=== PATIENT | female | born 1995 | race Asian ===

== ENCOUNTER 2019-04-23 16:25 | Emergency (ER) | payer SELFPAY ==
[~2019-04-23] VITALS: Ht 157.5 cm; Wt 49.9 kg
[~2019-04-23 16:25] MED LIST: AMMONIA INHALATION 0.33 ML AMP ONE; NALOXONE 2 MG/2 ML (NARCAN) SYR ONE
--- NOTE | 2019-04-23 16:30 | NUR ---
STERNAL RUB DONE BY DR ZEPEDA. PATIENT SAT STRAIGHT UP IN BED.
[2019-04-23] MEDS ORDERED: LACTATED RINGERS 1,000 ML IV ONE (16:32)
--- NOTE | 2019-04-23 16:39 | NUR ---
TO ROOM PATIENT ALERT AND REFUSING CATH ABOUT TO BE PLACED REFUSING ALL TX. SHE REPORTS THAT SHE HAS FITS. DR ZEPEDA TALKED TO HER ABOUT THE RISK OF LEAVING AMA SHE VOICED THAT SHE UNDERSTOOD
[2019-04-23 16:42] LABS: BASOPHILS % (AUTO) 0 % (0-10); EOSINOPHILS # (AUTO) 0.1 10^3/uL (0.0-0.3); EOSINOPHILS % (AUTO) 1 % (0-10); HEMATOCRIT 37 % (35-52); HEMOGLOBIN 12.3 G/DL (11.5-16.0); LYMPHOCYTES # (AUTO) 2.7 X 10^3 (1.0-4.0); LYMPHOCYTES % (AUTO) 29 % (12-44); MEAN CORPUSCULAR HEMOGLOBIN 28 PG (25-34); MEAN CORPUSCULAR HGB CONC 33 G/DL (32-36); MEAN CORPUSCULAR VOLUME 84 FL (80-99); MONOCYTES # (AUTO) 0.8 X 10^3 (0.0-1.0); MONOCYTES % (AUTO) 9 % (0-12); NEUTROPHILS # (AUTO) 5.8 X 10^3 (1.8-7.8); NEUTROPHILS % (AUTO) 62 % (42-75); PLATELET COUNT 180 10^3/uL (130-400); RED CELL DISTRIBUTION WIDTH 13.9 % (10.0-14.5); WHITE BLOOD COUNT 9.4 10^3/uL (4.3-11.0)
[2019-04-23 16:47] VITALS: BP 110/83
--- NOTE | 2019-04-23 16:47 | NUR ---
LEFT [facility] AMB TO DISCHARGE DESK. PATIENT GAVE NAME AND FRIENDS ON ADMIT DID NOT KNOW HER LAST NAME OR HER . Addendum: 04/23/19 at 1720 by PMCCLURE PATIENT REFUSED ALL TREATMENT.
--- NOTE | 2019-04-23 16:47 | NUR ---
SIGNED AMA. VOICED UNDERSTANDING
[2019-04-23 16:48] LABS: INR 1.1 (0.8-1.4); PROTHROMBIN TIME PATIENT 14.7 SEC (12.2-14.7)
[2019-04-23 16:57] LABS: ALANINE AMINOTRANSFERASE 16 U/L (0-55); ALBUMIN 4.3 GM/DL (3.2-4.5); ALKALINE PHOSPHATASE 97 U/L (40-136); AMYLASE 42 U/L (25-125); BILIRUBIN,TOTAL 0.4 MG/DL (0.1-1.0); BUN/CREATININE RATIO 7; CALCIUM 9.3 MG/DL (8.5-10.1); CARBON DIOXIDE 20 MMOL/L (21-32); CHLORIDE 107 MMOL/L (98-107); CREATINE KINASE 38 U/L (29-168); CREATININE SERUM 0.71 MG/DL (0.60-1.30); GFR ESTIMATED > 60; GLUCOSE 84 MG/DL (70-105); LIPASE 27 U/L (8-78); MAGNESIUM 1.8 MG/DL (1.6-2.4); POTASSIUM 3.9 MMOL/L (3.6-5.0); SODIUM 140 MMOL/L (135-145); TOTAL PROTEIN 8.4 GM/DL (6.4-8.2)
[2019-04-23 17:01] LABS: ACETAMINOPHEN < 10 UG/ML (10-30)
[2019-04-23 17:16] LABS: CREATINE KINASE MB 0.2 NG/ML (<6.6); TSH (THYROID ANALYZER) 1.36 UIU/ML (0.35-4.94)
--- NOTE | 2019-04-23 18:21 | ED General ---
General Chief Complaint: Unresponsive Stated Complaint: UNRESPONSIVE Nursing Triage Note: TO ED PER W/C WITH FRIENDS STATES SHE CALLED THEM STATING THAT SHE WAS ON HER PEROID AND NEEDED MEDS FOR THEY REPORTS SHE WENT UNRESPONSIVE TO ED PER W/C UNRESPONSIVE NOT NOT RESPONDING TO STERNAL RUB BY THIS NURSE. FRIENDS WITH HER NO PMH OF PATIENT. Nursing Sepsis Screen: No Definite Risk History of Present Illness Date Seen by Provider: Apr 23, 2019 Time Seen by Provider: 16:24 Initial Comments PT ARRIVES VIA POV --"FRIENDS" BRING HER INTO ER--IN A WHEELCHAIR-BUT THEY DO NOT KNOW PT'S LAST NAME PT IS [employer]--SCHOOL STARTED THIS WEEK PT REPORTEDLY CALLED ONE OF HER FRIENDS AND TOLD HER THAT SHE WAS ON HER PERIOD AND "DIDN'T FEEL GOOD" PT IS "UNRESPONSIVE" ON ARRIVAL--COMPLETELY "LIMP" IN WHEELCHAIR, BUT IS SITTING UP IN WHEELCHAIR AND IS NOT SLIDING OUT OF WHEELCHAIR WILL NOT TALK OR FOLLOW COMMANDS NO PROBLEMS BREATHING AT ALL, NO SNOROUS RESPIRATIONS OR DROOLING. O2 SAT IN UPPER 90'S AND ALL OTHER VITALS ARE NORMAL. ACCUCHECK 86 ON ARRIVAL [employer] FROM [facility] Allergies and Home Medications Allergies Coded Allergies: No Allergy Information Available (Unverified , 04/23/19) Home Medications No Active Prescriptions or Reported Meds Patient Home Medication List Home Medication List Reviewed: Yes Review of Systems Review of Systems Constitutional: other (UNABLE TO OBTAIN ON ARRIVAL) Genitourinary: other (CURRENTLY ON PERIOD ) Psychiatric/Neurological: See HPI Past Tclkopo-Vwxwlk-Hqzvfr Hx Patient Social History Smoking Status: Unknown if Ever Smoked Recent Foreign Travel: No Contact w/Someone Who Travel: No Recent Infectious Disease Expo: No Past Medical History Surgeries: Yes (LAPAROSCOPY FOR OVARIAN CYST) Female Reproductive Disorders: Ovarian Cyst Physical Exam Vital Signs Vital Signs - First Documented 04/23/19 16:25 Temp 100.0 Pulse 77 Resp 18 B/P (MAP) 110/83 (92) Pulse Ox 100 O2 Delivery Room Air Capillary Refill : Less Than 3 Seconds Height, Weight, BMI Height: 5'2.00" Weight: 110lbs. oz. 49.410990pf; BMI Method:Estimated General Appearance: Other ("UNRESPONSIVE" AND COMPLETELY "LIMP" ON ARRIVAL, BUT NO DIFFICULTY BREATHING AND ABLE TO MAINTAIN AIRWAY. EYELIDS "FLUTTERING" AND SQUEEZES EYES SHUT TIGHTLY WHEN TRYING TO EXAMINE EYES WITH LIGHT. NO EXTERNAL EVIDENCE OF TRAUMA ANYWHERE. ) HEENT: PERRL/EOMI Neck: Normal Inspection Respiratory: Normal Breath Sounds, No Accessory Muscle Use, No Respiratory Distress Cardiovascular: Regular Rate, Rhythm, No Edema, No JVD, No Murmur Gastrointestinal: Soft Extremity: Normal Capillary Refill, Normal Inspection, Normal Range of Motion, Non Tender, No Calf Tenderness, No Pedal Edema Neurologic/Psychiatric: Other (MENTATION ABOVE. ) Skin: Normal Color, Warm/Dry Progress/Results/Core Measures Suspected Sepsis Recent Fever Within 48 Hours: No Infection Criteria Present: None New/Unexplained Altered Menta: No Sepsis Screen: No Definite Risk SIRS Temperature:100.0 Pulse: 77 Respiratory Rate: 18 Laboratory Tests 04/23/19 16:30: White Blood Count 9.4 Blood Pressure 110 /83 Mean: 92 Laboratory Tests 04/23/19 16:30: Creatinine 0.71, INR Comment 1.1, Platelet Count 180, Total Bilirubin 0.4 Results/Orders Lab Results Laboratory Tests Test 04/23/19 16:30 04/23/19 16:31 Range/Units White Blood Count 9.4 4.3-11.0 10^3/uL Red Blood Count 4.38 4.35-5.85 10^6/uL Hemoglobin 12.3 11.5-16.0 G/DL Hematocrit 37 35-52 % Mean Corpuscular Volume 84 80-99 FL Mean Corpuscular Hemoglobin 28 25-34 PG Mean Corpuscular Hemoglobin Concent 33 32-36 G/DL Red Cell Distribution Width 13.9 10.0-14.5 % Platelet Count 180 130-400 10^3/uL Mean Platelet Volume 7.4-10.4 FL Neutrophils (%) (Auto) 62 42-75 % Lymphocytes (%) (Auto) 29 12-44 % Monocytes (%) (Auto) 9 0-12 % Eosinophils (%) (Auto) 1 0-10 % Basophils (%) (Auto) 0 0-10 % Neutrophils # (Auto) 5.8 1.8-7.8 X 10^3 Lymphocytes # (Auto) 2.7 1.0-4.0 X 10^3 Monocytes # (Auto) 0.8 0.0-1.0 X 10^3 Eosinophils # (Auto) 0.1 0.0-0.3 10^3/uL Basophils # (Auto) 0.0 0.0-0.1 10^3/uL Prothrombin Time 14.7 12.2-14.7 SEC INR Comment 1.1 0.8-1.4 Activated Partial Thromboplast Time 31 24-35 SEC Sodium Level 140 135-145 MMOL/L Potassium Level 3.9 3.6-5.0 MMOL/L Chloride Level 107 98-107 MMOL/L Carbon Dioxide Level 20 L 21-32 MMOL/L Anion Gap 13 5-14 MMOL/L Blood Urea Nitrogen 5 L 7-18 MG/DL Creatinine 0.71 0.60-1.30 MG/DL Estimat Glomerular Filtration Rate > 60 BUN/Creatinine Ratio 7 Glucose Level 84 70-105 MG/DL Calcium Level 9.3 8.5-10.1 MG/DL Corrected Calcium 9.1 8.5-10.1 MG/DL Magnesium Level 1.8 1.6-2.4 MG/DL Total Bilirubin 0.4 0.1-1.0 MG/DL Aspartate Amino Transf (AST/SGOT) 18 5-34 U/L Alanine Aminotransferase (ALT/SGPT) 16 0-55 U/L Alkaline Phosphatase 97 40-136 U/L Total Creatine Kinase 38 29-168 U/L Creatine Kinase MB 0.2 <6.6 NG/ML Myoglobin 15.7 10.0-92.0 NG/ML Troponin I < 0.028 <0.028 NG/ML Total Protein 8.4 H 6.4-8.2 GM/DL Albumin 4.3 3.2-4.5 GM/DL Amylase Level 42 25-125 U/L Lipase 27 8-78 U/L TSH [place] Testing 1.36 0.35-4.94 UIU/ML Acetaminophen Level < 10 L 10-30 UG/ML Serum Alcohol < 10 <10 MG/DL Monoscreen NEGATIVE NEGATIVE Glucometer 86 70-110 MG/DL My Orders Orders - LEMUEL ZEPEDA DO Accucheck Stat ONCE (04/23/19 16:32) Ed Iv/Invasive Line Start (04/23/19 16:32) Ekg Tracing (04/23/19 16:32) Monitor-Rhythm Ecg Trace Only (04/23/19 16:32) Straight Cath For Spec.-Adult (04/23/19 16:32) Acetaminophen (04/23/19 16:32) Alcohol (04/23/19 16:32) Amylase (04/23/19 16:32) Cbc With Automated Diff (04/23/19 16:32) Comprehensive Metabolic Panel (04/23/19 16:32) Creatine Kinase (04/23/19 16:32) Creatine Kinase Mb (04/23/19 16:32) Drug Screen Stat (Urine) (04/23/19 16:32) Lactic Acid Analyzer (04/23/19 16:32) Lipase (04/23/19 16:32) Magnesium (04/23/19 16:32) Monotest (04/23/19 16:32) Protime With Inr (04/23/19 16:32) Partial Thromboplastin Time (04/23/19 16:32) Rapid Strep A Screen (04/23/19 16:32) Thyroid Analyzer (04/23/19 16:32) Ua Culture If Indicated (04/23/19 16:32) Blood Culture (04/23/19 16:32) Myoglobin Serum (04/23/19 16:32) Troponin I (04/23/19 16:32) Ed Iv/Invasive Line Start (04/23/19 16:32) Ed Iv/Invasive Line Start (04/23/19 16:32) Lactated Ringers (Lr 1000 Ml Iv Solution (04/23/19 16:32) Vital Signs/I&O 04/23/19 04/23/19 16:25 16:47 Temp 100.0 Pulse 77 77 Resp 18 18 B/P (MAP) 110/83 (92) 110/83 (92) Pulse Ox 100 100 O2 Delivery Room Air Room Air Capillary Refill : Less Than 3 Seconds Blood Pressure Mean: 92 Point of Care Testing Finger Stick Blood Glucose: 86 Blood Glucose Action Taken: NOTIFIED Progress Note : Progress Note STERNAL RUB PERFORMED BY ME AND PT HAD A VERY DRAMATIC RESPONSE--IMMEDIATELY BOLTED TO UPRIGHT AND SITTING POSITION. PT IS NOW AWAKE LOOKING AROUND, BUT "WON'T TALK" BUT FOLLOWS COMMANDS AND NODS HEAD YES/NO AND "ACTS" DROWSY--VERY DRAMATIC BEHAVIOR ON MENTIONING CATHETER, PT SUDDENLY AND IMMEDIATELY NOW IS VERY AWAKE, ALERT, ORIENTED X 4, AND IS TALKING COMPLETELY NORMALLY, AND IS ADAMANTLY REFUSING CATHETER, IS REFUSING ALL TESTS, STATES "I AM FINE" " I DON'T NEED ANY TESTS" "I DON'T NEED ANY TREATMENT" STATES ALL SHE WANTS TO DO IS SEE HER FRIENDS AND TALK TO HER FRIENDS. PT IS ADAMANT THAT SHE DOES NOT WANT TO STAY OR HAVE ANY TESTS OR TREATMENTS PT STATES SHE "SOMETIMES HAS FITS" "WHEN SHE GETS ANXIOUS, SHE STARTS SHAKING" A MULTITUDE OF OTHER [employer] STUDENTS ARRIVE DURING PT'S VERY BRIEF ER STAY--OVER A DOZEN OTHER STUDENTS. HOWEVER, THEY DO NOT KNOW HER LAST NAME OR ANY OF HER MEDICAL HISTORY. PT SIGNED OUT AMA, AFTER CONTINUED REFUSAL OF ANY FURTHER TREATMENT PT AMBULATES OUT OF ER ON HER OWN WITHOUT DIFFICULTY. ECG Initial ECG Impression Date: Apr 23, 2019 Initial ECG Impression Time: 16:33 Initial ECG Rate: 79 Initial ECG Rhythm: Normal Sinus Initial ECG Comparisson: No Previous ECG Available Departure Impression Primary Impression: Left against medical advice Additional Impressions: Histrionic behavior SUSPECTED CONVERSION DISORDER TRANSIENT ALTERED MENTAL STATUS Disposition: 07 AGAINST MEDICAL ADVICE Condition: Against Medical Advice Departure-Patient Inst. Referrals: [employer] [facility] (PCP) Primary Care Physician Scripts No Active Prescriptions or Reported Meds LEMUEL ZEPEDA DO Apr 23, 2019 18:21
[2019-04-23] MEDS ORDERED: ACHD5005 PO (22:30)
== END 2019-04-23 16:47 | disposition left against medical advice (07) ==
LOC: EDBD 16:28 → ER 16:28
DX: R41.82 Altered mental status, unspecified (principal); F60.4 Histrionic personality disorder
CPT/HCPCS: 36415; 80053; 80320; 80329; 82150; 82550; 82553; 82962; 83690; 83735; 83874; 84443; 84484; 85025; 85610; 85730; 86308; 93005

== ENCOUNTER 2019-04-23 17:46 | Emergency (ER) | payer SELFPAY ==
[~2019-04-23] VITALS: Ht 157.5 cm; Wt 49.9 kg
[2019-04-23] MEDS ORDERED: IBUPROFEN 800 MG (MOTRIN) TAB PO ONE (18:15)
[2019-04-23] MEDS ORDERED: ACETAMINOPHEN 500 MG TAB (TYLENOL) PO ONE (18:15)
[2019-04-23 18:23] VITALS: BP 110/83
--- NOTE | 2019-04-23 18:23 | ED Abdominal Pain ---
General Chief Complaint: [employer]ESSIONAL [employer] Stated Complaint: WEAKNESS/ABD PAIN Nursing Triage Note: PT STATES STARTING PERIOD YESTERDAY AND IS HAVING COMPARABLE FLOW TO HER NORMAL MENSUS. PT DENIES PASSING CLOTS. PT STATES "I JUST WANT REHYDRATED AND PAIN MEDICINE" PT HAS HISTORY OF OVARIAN CYST. PT STATES SHE JUST MOVED HER 2 WEEKS AGO. PT WAS ADMITTED TO THE ER PRIOR TO THIS VISIT AND PT SIGNED AMA AND DID NOT WANT TO BE SEEN. PT FRIENDS WITH HER TALKED PT IN TO COMING BACK TO THE ER. PT STATES SHE HAS BEEN FEELING VERY ANXIOUS. PT STATES SHE "WANTS TO STOP BLEEDING AND TO BE REHYDRATED AND PAIN KILLERS" PT DENIES TAKING IBUPROFEN OR TYLENOL. Sepsis Screen: No Definite Risk Source of Information: Patient Exam Limitations: No Limitations History of Present Illness Date Seen by Provider: Apr 23, 2019 Time Seen by Provider: 18:21 Initial Comments To ER with c/o midline abdominal pain that began last night. She started her menses at that time. She occasionally has pain like this with her menses, had laparoscopic ovarian cystectomy on the left a few weeks ago. Moved to [facility] [facility] 2 weeks ago for school. Hasnt taken anything for pain today. Vaginal bleeding is consistent with her previous periods. Timing/Duration: 1-2 Days Severity/Quality: Moderate Location: Suprapubic Radiation: No Radiation Activities at Onset: None Allergies and Home Medications Allergies Coded Allergies: No Allergy Information Available (Unverified , 04/23/19) Home Medications No Active Prescriptions or Reported Meds Patient Home Medication List Home Medication List Reviewed: Yes Review of Systems Review of Systems Constitutional: see HPI EENTM: No Symptoms Reported Respiratory: No Symptoms Reported Cardiovascular: No Symptoms Reported Gastrointestinal: See HPI, Abdominal Pain Genitourinary: No Symptoms Reported Musculoskeletal: no symptoms reported Skin: no symptoms reported Psychiatric/Neurological: No Symptoms Reported Endocrine: No Symptoms Reported Hematologic/Lymphatic: No Symptoms Reported Past Kkrznqa-Bbsmqq-Dfyhdw Hx Patient Social History Alcohol Use: Denies Use Recreational Drug Use: No Smoking Status: Never a Smoker Recent Foreign Travel: No Contact w/Someone Who Travel: No Recent Infectious Disease Expo: No Physical Abuse: No Sexual Abuse: No Mistreated: No Fear: No Seasonal Allergies Seasonal Allergies: No Past Medical History Surgeries: Yes (FIBROID/OVARIAN CYST) Respiratory: No Cardiac: No Neurological: No Female Reproductive Disorders: Menstrual Problems, Ovarian Cyst Genitourinary: No Gastrointestinal: No Musculoskeletal: No Endocrine: No HEENT: No Cancer: No Psychosocial: No Physical Exam Vital Signs Vital Signs - First Documented 04/23/19 18:23 Temp 97.6 Pulse 67 Resp 18 B/P (MAP) 110/83 (92) Pulse Ox 100 O2 Delivery Room Air Capillary Refill : Less Than 3 Seconds Height/Weight/BMI Height: 5'2.00" Weight: 110lbs. oz. 49.762689dp; BMI Method:Estimated General Appearance: WD/WN, no apparent distress Respiratory: no respiratory distress, no accessory muscle use Gastrointestinal: normal bowel sounds, non tender, soft Extremities: normal range of motion, non-tender Neurologic/Psychiatric: alert, normal mood/affect, oriented x 3 Skin: normal color, warm/dry Progress/Results/Core Measures Results/Orders Lab Results Laboratory Tests Test 04/23/19 16:30 04/23/19 18:17 Range/Units Serum Test, Qualitative NEGATIVE NEGATIVE Urine Color RED H Urine Clarity BLOODY H Urine pH 8 5-9 Urine Specific [place] 1.015 L 1.016-1.022 Urine Protein 1+ H NEGATIVE Urine Glucose (UA) NEGATIVE NEGATIVE Urine Ketones NEGATIVE NEGATIVE Urine Nitrite NEGATIVE NEGATIVE Urine Bilirubin NEGATIVE NEGATIVE Urine Urobilinogen NORMAL NORMAL MG/DL Urine Leukocyte Esterase 2+ H NEGATIVE Urine RBC (Auto) 5+ H NEGATIVE Urine RBC >100 H /HPF Urine WBC 2-5 /HPF Urine Crystals NONE /LPF Urine Bacteria NONE /HPF Urine Casts NONE /LPF Urine Mucus NEGATIVE /LPF Urine Culture Indicated NO My Orders Orders - KATHIA RAHMAN APRN Ibuprofen Tablet (Motrin Tablet) (04/23/19 18:15) Acetaminophen Tablet (Tylenol Tablet) (04/23/19 18:15) Ua Culture If Indicated (04/23/19 18:08) Hcg,Qualitative Serum (04/23/19 18:08) Medications Given in ED Current Medications Medications Dose Ordered Sig/Ji Route Start Time Stop Time Status Last Admin Dose Admin Acetaminophen 1,000 mg ONCE ONCE PO 04/23/19 18:15 04/23/19 18:16 DC 04/23/19 18:10 1,000 MG Ibuprofen 800 mg ONCE ONCE PO 04/23/19 18:15 04/23/19 18:16 DC 04/23/19 18:10 800 MG Vital Signs/I&O 04/23/19 04/23/19 18:05 18:23 Temp 97.6 Pulse 67 Resp 18 B/P (MAP) 110/83 (92) Pulse Ox 100 O2 Delivery Room Air Departure Communication (Admissions) 184-pt is feeling better at this time. Impression Primary Impression: Normal menstrual period Additional Impression: Abdominal pain Disposition: HOME, SELF-CARE Condition: Stable Departure-Patient Inst. Decision time for Depature: 18:37 Referrals: [employer] [facility] (PCP/Family) Primary Care Physician Patient Instructions: NO INSTRUCTIONS GIVEN Add. Discharge Instructions: 1. Return to ER for any concerns 2. Follow up with your doctor next week or [employer] [facility]. In the meantime use Tylenol and MOTRIN for pain control. Return to Er for lightheadedness, fevers, or severe pain. All discharge instructions reviewed with patient and/or family. Voiced understanding. Scripts No Active Prescriptions or Reported Meds KATHIA RAHMAN APRN Apr 23, 2019 18:23
[2019-04-23 18:25] LABS: BILIRUBIN,URINE NEGATIVE (NEGATIVE); CLARITY,URINE BLOODY; COLOR,URINE RED; GLUCOSE, URINE (UA) NEGATIVE (NEGATIVE); KETONES,URINE NEGATIVE (NEGATIVE); LEUKOCYTE ESTERASE ,URINE 2+ (NEGATIVE); NITRITE,URINE NEGATIVE (NEGATIVE); PH,URINE 8 (5-9); PROTEIN,URINE 1+ (NEGATIVE); UROBILINOGEN,URINE NORMAL (NORMAL)
[2019-04-23 18:31] LABS: RBC,URINE >100 /HPF
--- NOTE | 2019-04-23 18:32 | NUR ---
pt ambulates to bathroom with stand by assist.
[2019-04-23 18:50] VITALS: BP 110/83
[2019-04-23] MEDS ORDERED: ACHD5005 PO (22:30)
== END 2019-04-23 18:51 | disposition home or self-care (01) ==
LOC: EDUNIT# 17:46 → ER 17:47
DX: R10.32 Left lower quadrant pain (principal)
CPT/HCPCS: 36415; 81000; 84703; 99283

== ENCOUNTER 2019-04-23 20:50 | Emergency (ER) | payer SELFPAY ==
[~2019-04-23] VITALS: Ht 157.5 cm; Wt 49.9 kg
--- NOTE | 2019-04-23 21:10 | ED Abdominal Pain ---
General Stated Complaint: CONVULSION Source of Information: Patient Exam Limitations: No Limitations History of Present Illness Date Seen by Provider: Apr 23, 2019 Time Seen by Provider: 21:06 Initial Comments to er per private vehicle with her roomates who've known her for 3 days with c/o suprapubic abodmianl pain. Shes on her menstrual period. Reports pain that is very intense. Had laparoscopic left ovarian cystectomy a few months ago [place]. Moved here for [employer] 2 weeks ago. States this period is heavier than usual. This is her third visit today, first episode she was "unresponsive" and then awakened and stated that she sometimes has "fits" and signed out ama. She then returned, had ua done in addition to labs done previously today. That was unremarkable, she was given tylenol and motrin for pain and sent home. Timing/Duration: 1-2 Days Severity/Quality: Moderate Radiation: No Radiation Activities at Onset: None Associated Symptoms: No Fever/Chills, No Nausea/Vomiting Allergies and Home Medications Allergies Coded Allergies: No Allergy Information Available (Unverified , 04/23/19) Home Medications No Active Prescriptions or Reported Meds Patient Home Medication List Home Medication List Reviewed: Yes Review of Systems Review of Systems Constitutional: see HPI EENTM: No Symptoms Reported Respiratory: No Symptoms Reported Cardiovascular: No Symptoms Reported Gastrointestinal: See HPI, Abdominal Pain Genitourinary: See HPI, Other (vaginal bleeding) Musculoskeletal: no symptoms reported Skin: no symptoms reported Psychiatric/Neurological: No Symptoms Reported Endocrine: No Symptoms Reported Hematologic/Lymphatic: No Symptoms Reported Past Dslsxel-Qipydb-Mqrdcv Hx Patient Social History Recent Foreign Travel: No Contact w/Someone Who Travel: No Seasonal Allergies Seasonal Allergies: No Past Medical History Surgeries: Yes (FIBROID/OVARIAN CYST) Respiratory: No Cardiac: No Neurological: No Female Reproductive Disorders: Menstrual Problems, Ovarian Cyst Genitourinary: No Gastrointestinal: No Musculoskeletal: No Endocrine: No HEENT: No Cancer: No Psychosocial: No Physical Exam Vital Signs Capillary Refill : Height/Weight/BMI Height: 5'2.00" Weight: 110lbs. oz. 49.085075qn; BMI Method:Estimated General Appearance: WD/WN HEENT: PERRL/EOMI, normal ENT inspection Respiratory: no respiratory distress, no accessory muscle use Gastrointestinal: normal bowel sounds, non tender, soft Extremities: normal range of motion, non-tender Neurologic/Psychiatric: alert, normal mood/affect, oriented x 3 Skin: normal color, warm/dry Progress/Results/Core Measures Results/Orders Lab Results Laboratory Tests Test 04/23/19 21:03 Range/Units White Blood Count 9.7 4.3-11.0 10^3/uL Red Blood Count 4.09 L 4.35-5.85 10^6/uL Hemoglobin 11.4 L 11.5-16.0 G/DL Hematocrit 35 35-52 % Mean Corpuscular Volume 84 80-99 FL Mean Corpuscular Hemoglobin 28 25-34 PG Mean Corpuscular Hemoglobin Concent 33 32-36 G/DL Red Cell Distribution Width 14.0 10.0-14.5 % Platelet Count 162 130-400 10^3/uL Mean Platelet Volume 7.4-10.4 FL Neutrophils (%) (Auto) 69 42-75 % Lymphocytes (%) (Auto) 25 12-44 % Monocytes (%) (Auto) 6 0-12 % Eosinophils (%) (Auto) 1 0-10 % Basophils (%) (Auto) 0 0-10 % Neutrophils # (Auto) 6.6 1.8-7.8 X 10^3 Lymphocytes # (Auto) 2.4 1.0-4.0 X 10^3 Monocytes # (Auto) 0.6 0.0-1.0 X 10^3 Eosinophils # (Auto) 0.1 0.0-0.3 10^3/uL Basophils # (Auto) 0.0 0.0-0.1 10^3/uL My Orders Orders - KATHIA RAHMAN APRN Ketorolac Injection (Toradol Injection) (04/23/19 21:15) Ns Iv 1000 Ml (Sodium Chloride 0.9%) (04/23/19 21:15) Lorazepam Injection (Ativan Injection) (04/23/19 21:15) Ct Abd/Pelvis Wo(Kidney Stone) (04/23/19 21:27) Cbc With Automated Diff (04/23/19 21:48) Fentanyl Injection (Sublimaze Injection (04/23/19 22:17) Medications Given in ED Current Medications Medications Dose Ordered Sig/Ji Route Start Time Stop Time Status Last Admin Dose Admin Ketorolac Tromethamine 15 mg ONCE ONCE IVP 04/23/19 21:15 04/23/19 21:16 DC 04/23/19 21:51 15 MG Lorazepam 0.5 mg ONCE ONCE IVP 04/23/19 21:15 04/23/19 21:16 DC 04/23/19 21:52 0.5 MG Departure Communication (Admissions) 2120- pt refused IV contrast. 2227-Pelvic exam with yarelis RN at bedside. dried blood in vaginal vault but no alex hemorrhage from the cervix. Impression Primary Impression: Abdominal pain Additional Impression: Menses painful Disposition: HOME, SELF-CARE Condition: Stable Departure-Patient Inst. Decision time for Depature: 22:29 Referrals: [employer] [facility] (PCP/Family) Primary Care Physician Patient Instructions: Menstrual Cramps (DC) Add. Discharge Instructions: 1. Follow up with [employer] [facility] tomorrow Scripts Hydrocodone Bit/Acetaminophen (Hydrocodone/Acetaminophen 5/325mg Tablet) 1 Tab Tab 1 EACH PO Q4-6HR PRN for PAIN-MODERATE MDD 10 for 3 Days, #5 TAB Prov: KATHIA RAHMAN APRN 04/23/19 KATHIA RAHMAN APRN Apr 23, 2019 21:10
[2019-04-23] MEDS ORDERED: KETOROLAC 30 MG/ML VIAL IVP ONE (21:15)
[2019-04-23] MEDS ORDERED: NS IV 1000 ML 1,000 ML IV SCH (21:15)
[2019-04-23] MEDS ORDERED: LORazepam INJ 2 MG/ML (ATIVAN) VIAL IVP ONE (21:15)
[2019-04-23 21:52] LABS: BASOPHILS % (AUTO) 0 % (0-10); EOSINOPHILS # (AUTO) 0.1 10^3/uL (0.0-0.3); EOSINOPHILS % (AUTO) 1 % (0-10); HEMATOCRIT 35 % (35-52); HEMOGLOBIN 11.4 G/DL (11.5-16.0); LYMPHOCYTES # (AUTO) 2.4 X 10^3 (1.0-4.0); LYMPHOCYTES % (AUTO) 25 % (12-44); MEAN CORPUSCULAR HEMOGLOBIN 28 PG (25-34); MEAN CORPUSCULAR HGB CONC 33 G/DL (32-36); MEAN CORPUSCULAR VOLUME 84 FL (80-99); MONOCYTES # (AUTO) 0.6 X 10^3 (0.0-1.0); MONOCYTES % (AUTO) 6 % (0-12); NEUTROPHILS # (AUTO) 6.6 X 10^3 (1.8-7.8); NEUTROPHILS % (AUTO) 69 % (42-75); PLATELET COUNT 162 10^3/uL (130-400); WHITE BLOOD COUNT 9.7 10^3/uL (4.3-11.0)
--- NOTE | 2019-04-23 21:53 | Diagnostic Imaging Report ---
PROCEDURE: CT urinary tract, rule out kidney stone. TECHNIQUE: Multiple contiguous axial images were obtained through the abdomen and pelvis without the use of intravenous contrast. Auto Exposure Controls were utilized during the CT exam to meet ALARA standards for radiation dose reduction. INDICATION: Left lower quadrant abdominal pain. COMPARISON: None. FINDINGS: The lung bases are clear. The liver, gallbladder, pancreas, spleen, adrenals, kidneys, collecting systems, bladder and appendix are negative on this noncontrast exam. Reproductive structures are grossly unremarkable. No free intraperitoneal air or fluid. No lymphadenopathy. No evidence of bowel obstruction or inflammation. Osseous structures are intact. IMPRESSION: Negative noncontrast CT of the abdomen and pelvis. Dictated by: Dictated on workstation # [id number]
[2019-04-23] MEDS ORDERED: fentaNYL INJECTION 100 MCG/2 ML AMP ONE (22:17)
[2019-04-23] MEDS ORDERED: ACHD5005 PO (22:30)
[2019-04-23] MEDS ORDERED: fentaNYL INJECTION 100 MCG/2 ML AMP IVP ONE (22:45)
[2019-04-23 22:47] VITALS: BP 107/72
== END 2019-04-23 22:48 | disposition home or self-care (01) ==
LOC: EDUNIT# 20:50 → ER 20:52
DX: N94.6 Dysmenorrhea, unspecified (principal)
CPT/HCPCS: 36415; 74176; 85025

== ENCOUNTER 2019-04-24 10:28 | Emergency (ER) | payer SELFPAY ==
[~2019-04-24] VITALS: Ht 157.5 cm; Wt 51.7 kg
[~2019-04-24 10:28] MED LIST changes: +ACHD5005 PO; -AMMONIA INHALATION 0.33 ML AMP ONE; -NALOXONE 2 MG/2 ML (NARCAN) SYR ONE
[2019-04-24] MEDS ORDERED: fentaNYL INJECTION 100 MCG/2 ML AMP ONE (10:45)
--- NOTE | 2019-04-24 10:50 | ED Syncope ---
General Stated Complaint: SYNCOPE Source of Information: Patient Exam Limitations: No Limitations History of Present Illness Date Seen by Provider: Apr 24, 2019 Time Seen by Provider: 10:35 Initial Comments Patient presents to ER by EMS with chief complaint that her cousin Graham was dropping her off at her house and when he went up a car came back she was laying collapsed and unconscious at the bottom of some stairs. EMS arrived and put her in c-collar C-spine precautions. They performed orthostatics which were positive from 140 down to 100 systolic laying to standing. The patient apparently one month ago went to [facility] to have a ectopic in her left tube surgically removed laparoscopically and since then has been bleeding the entire month. She has not followed up with a doctor here with the exception come to the ER for syncopal episode yesterday. She went AMA and did not complete her workup. Patient has continued to soak through about 9 pads daily. She has a primary care doctor in [facility]. No other medical history, surgical history. She does not take any medicines routinely. Allergies and Home Medications Allergies Coded Allergies: No Allergy Information Available (Unverified , 04/23/19) Home Medications Hydrocodone Bit/Acetaminophen 1 Tab Tab, 1 EACH PO Q4-6HR PRN for PAIN-MODERATE Prescribed by: KATHIA RAHMAN on 04/23/19 5389 Patient Home Medication List Home Medication List Reviewed: Yes Review of Systems Constitutional: No chills, No diaphoresis; dizziness; No fever EENTM: No ear pain, No eye pain Respiratory: No cough, No short of breath Cardiovascular: No chest pain, No edema, No Hx of Intervention Gastrointestinal: abdominal pain (LLQ); No constipation, No diarrhea, No nausea, No vomiting Genitourinary: see HPI; No discharge, No dysuria Control/STD Prophylaxis: None Musculoskeletal: No back pain, No joint pain Past Wcnqylf-Hgkyre-Coyust Hx Patient Social History Alcohol Use: Denies Use Recreational Drug Use: No Smoking Status: Never a Smoker Recent Hopitalizations: No Seasonal Allergies Seasonal Allergies: No Past Medical History Surgeries: Yes (LAPAROSCOPY FOR OVARIAN CYST) Respiratory: No Cardiac: No Neurological: No Female Reproductive Disorders: Ovarian Cyst Genitourinary: No Gastrointestinal: No Musculoskeletal: No Endocrine: No HEENT: No Cancer: No Psychosocial: No Integumentary: No Physical Exam Vital Signs Vital Signs - First Documented 04/24/19 10:31 Temp 98.2 Pulse 74 Resp 19 B/P (MAP) 121/76 (91) Pulse Ox 100 O2 Delivery Room Air Capillary Refill : Height, Weight, BMI Height: 5'2.00" Weight: 110lbs. oz. 49.520016ja; BMI Method:Estimated General Appearance: No Apparent Distress, WD/WN HEENT: PERRL/EOMI, TMs Normal, Normal ENT Inspection, Pharynx Normal, Moist Mucous Membranes Neck: Full Range of Motion, Normal Inspection, Non Tender Cardiovascular: Regular Rate, Rhythm, No Edema, Normal Peripheral Pulses Respiratory: Lungs Clear, Normal Breath Sounds, No Accessory Muscle Use, No Respiratory Distress Gastrointestinal: Normal Bowel Sounds, Non Tender, Soft Extremities: Normal Capillary Refill, Normal Inspection, No Pedal Edema Neurologic/Psychiatric: Alert, Oriented x3, No Motor/Sensory Deficits, visual designer II- XII Norm as Tested Cranial Nerves: Normal Hearing, Normal Speech, PERRL Motor/Sensory: No Sensory Deficit, Weak Motor Strength LLE (4/5), Weak Motor Strength LUE (4/5), Weak Motor Strength RLE (4/5), Weak Motor Strength RUE (4/5) Skin: Normal Color, Warm/Dry Progress/Results/Core Measures Results/Orders Lab Results Laboratory Tests Test 04/24/19 10:40 04/24/19 11:00 Range/Units White Blood Count 5.7 4.3-11.0 10^3/uL Red Blood Count 3.84 L 4.35-5.85 10^6/uL Hemoglobin 10.7 L 11.5-16.0 G/DL Hematocrit 33 L 35-52 % Mean Corpuscular Volume 85 80-99 FL Mean Corpuscular Hemoglobin 28 25-34 PG Mean Corpuscular Hemoglobin Concent 33 32-36 G/DL Red Cell Distribution Width 14.0 10.0-14.5 % Platelet Count 156 130-400 10^3/uL Mean Platelet Volume 7.4-10.4 FL Neutrophils (%) (Auto) 53 42-75 % Lymphocytes (%) (Auto) 35 12-44 % Monocytes (%) (Auto) 10 0-12 % Eosinophils (%) (Auto) 1 0-10 % Basophils (%) (Auto) 0 0-10 % Neutrophils # (Auto) 3.1 1.8-7.8 X 10^3 Lymphocytes # (Auto) 2.0 1.0-4.0 X 10^3 Monocytes # (Auto) 0.6 0.0-1.0 X 10^3 Eosinophils # (Auto) 0.1 0.0-0.3 10^3/uL Basophils # (Auto) 0.0 0.0-0.1 10^3/uL Sodium Level 140 135-145 MMOL/L Potassium Level 4.0 3.6-5.0 MMOL/L Chloride Level 112 H 98-107 MMOL/L Carbon Dioxide Level 22 21-32 MMOL/L Anion Gap 6 5-14 MMOL/L Blood Urea Nitrogen 6 L 7-18 MG/DL Creatinine 0.63 0.60-1.30 MG/DL Estimat Glomerular Filtration Rate > 60 BUN/Creatinine Ratio 10 Glucose Level 91 70-105 MG/DL Calcium Level 8.3 L 8.5-10.1 MG/DL Corrected Calcium 8.5 8.5-10.1 MG/DL Total Bilirubin 0.3 0.1-1.0 MG/DL Aspartate Amino Transf (AST/SGOT) 12 5-34 U/L Alanine Aminotransferase (ALT/SGPT) 16 0-55 U/L Alkaline Phosphatase 65 40-136 U/L C-Reactive Protein High Sensitivity 0.61 H 0.00-0.50 MG/DL Total Protein 6.9 6.4-8.2 GM/DL Albumin 3.7 3.2-4.5 GM/DL Urine Color YELLOW Urine Clarity CLEAR Urine pH 6 5-9 Urine Specific [place] 1.015 L 1.016-1.022 Urine Protein NEGATIVE NEGATIVE Urine Glucose (UA) NEGATIVE NEGATIVE Urine Ketones NEGATIVE NEGATIVE Urine Nitrite NEGATIVE NEGATIVE Urine Bilirubin NEGATIVE NEGATIVE Urine Urobilinogen NORMAL NORMAL MG/DL Urine Leukocyte Esterase NEGATIVE NEGATIVE Urine RBC (Auto) 1+ H NEGATIVE Urine RBC RARE /HPF Urine WBC NONE /HPF Urine Squamous Epithelial Cells 0-2 /HPF Urine Crystals NONE /LPF Urine Bacteria NEGATIVE /HPF Urine Casts NONE /LPF Urine Mucus NEGATIVE /LPF Urine Culture Indicated NO Urine Opiates Screen NEGATIVE NEGATIVE Urine Oxycodone Screen NEGATIVE NEGATIVE Urine Methadone Screen NEGATIVE NEGATIVE Urine Propoxyphene Screen NEGATIVE NEGATIVE Urine Barbiturates Screen NEGATIVE NEGATIVE Ur Tricyclic Antidepressants Screen NEGATIVE NEGATIVE Urine Phencyclidine Screen NEGATIVE NEGATIVE Urine Amphetamines Screen NEGATIVE NEGATIVE Urine Methamphetamines Screen NEGATIVE NEGATIVE Urine Benzodiazepines Screen NEGATIVE NEGATIVE Urine Cocaine Screen NEGATIVE NEGATIVE Urine Cannabinoids Screen NEGATIVE NEGATIVE My Orders Orders - MALINI SLADE Cbc With Automated Diff (04/24/19 10:44) Comprehensive Metabolic Panel (04/24/19 10:44) Hs C Reactive Protein (04/24/19 10:44) Ua Culture If Indicated (04/24/19 10:44) Straight Cath For Spec.-Adult (04/24/19 10:44) Ct Head/Cervical Spine Wo (04/24/19 10:44) Fentanyl Injection (Sublimaze Injection (04/24/19 10:45) Fentanyl Injection (Sublimaze Injection (04/24/19 11:15) Drug Screen Stat (Urine) (04/24/19 11:50) Ekg Tracing (04/24/19 11:50) Continuous Ekg Monitoring (04/24/19 11:50) Medications Given in ED Current Medications Medications Dose Ordered Sig/Ji Route Start Time Stop Time Status Last Admin Dose Admin Fentanyl Citrate 50 mcg ONCE ONCE IVP 04/24/19 11:15 04/24/19 11:16 DC 04/24/19 10:54 50 MCG Vital Signs/I&O 04/24/19 04/24/19 10:31 12:46 Temp 98.2 Pulse 74 64 74 73 Resp 19 B/P (MAP) 121/76 (91) 113/73 (86) 108/71 (83) 107/71 (83) Pulse Ox 100 O2 Delivery Room Air Progress Progress Note #1: Time: 11:18 Progress Note The patient is receiving a liter of fluids initiated by EMS which will allow a complete. This would be a 20 cc/kg fluid bolus based on a stated weight of 52 kg. Planned obtain labs and urine by straight catheter. Reviewed notes from previous 3 visits to the ER in the past 2 days. She had a CT of the abdomen and pelvis without IV contrast because of a stated allergy to shellfish and iodine. We'll obtain a urine drug screen and EKG. Troponin and BNP. Her hemoglobin is 10 so she is not significantly anemic and her orthostatics were positive. Progress Note #2: Time: 12:10 Progress Note C-collar removed. Patient has no tenderness in the neck. Reviewed CT of the abdomen pelvis without IV contrast from yesterday demonstrating no free air or free fluid and grossly unremarkable appearance of the reproductive organs. After the orthostatics were repeated they were now normal. Plan will be to have her follow-up outpatient. We can recommend to gynecology for disorganized uterine bleeding. She can follow-up with [facility] or the orthostatic syncope. [place] syncope score negative two points. Very low risk. 0.7% risk of 30-day serious adverse event. Initial ECG Impression Date: Apr 24, 2019 Initial ECG Impression Time: 10:47 Initial ECG Rate: 69 Initial ECG Rhythm: Normal Sinus Initial ECG Intervals: Normal Initial ECG Impression: Normal Initial ECG Comparisson: Unchanged Comment Normal sinus rhythm without any dysrhythmia noted. Low amplitude on some of the leads. Diagnostic Imaging Diagonstic Imaging: CT Plain Films/CT/US/NM/MRI: c-spine, head Comments NAME: BEVERLY RIZZO [facility] REC#: [id number] PT STATUS: REG ER : 1995 PHYSICIAN: MALINI SLADE MD ADMIT DATE: 04/24/19/ER Draft Date of Exam:04/24/19 CT HEAD/CERVICAL SPINE WO PROCEDURE: CT head and CT cervical spine without contrast. TECHNIQUE: Multiple contiguous axial images were obtained through the brain and cervical spine without the use of intravenous contrast. Sagittal and coronal reformations through the cervical spine were then performed. Auto Exposure Controls were utilized during the CT exam to meet ALARA standards for radiation dose reduction. INDICATION: Syncope. CT HEAD: No hemorrhage, hydrocephalus, edema, mass, mass effect, or evidence for elevated pressures found. Orbits, sinuses, and calvarium appear nonacute. Basilar cisterns are patent, and there is no sulcal effacement. No evidence for elevated intracerebral pressures. CT CERVICAL SPINE: Body heights are maintained. The alignment is within normal limits. No acute or suspicious endplate irregularity. The skull base is intact. There is no cervical spinal fracture. Structures of the larynx have an unremarkable appearance. The thoracic inlet and pulmonary apices are clear. IMPRESSION: Unremarkable CT head and CT cervical spine. Dictated on workstation # [id number] Dict: 04/24/19 1154 Trans: 04/24/19 1200 [id number] Interpreted by: JOCELYNN ZARAGOZA Electronically signed by: Reviewed: Reviewed by Me Consults : Consulting Physician: SACHA MCKEON DO Consults Notes Discussed the case with Dr. Parker and he agrees to see the patient in clinic in follow-up. Talked to Dinorah at his clinic and she made an appointment for Wednesday05/08/19 at 1430. Departure Impression Primary Impression: Syncope due to orthostatic hypotension Additional Impression: Abnormal uterine bleeding Disposition: HOME, SELF-CARE Condition: Improved Departure-Patient Inst. Decision time for Depature: 13:13 Referrals: [facility] (PCP) Primary Care Physician SACHA MCKEON DO Patient Instructions: Heavy Periods (DC), Syncope (Fainting) (DC) Add. Discharge Instructions: Drink plenty of fluids to prevent passing out again. Follow-up with a primary care doctor for your syncopal workup outpatient. You may also follow-up with the clinic at [facility]. You have an appointment for your heavy bleeding with the integration technician Dr. Parker next 05/08/19 at 230 PM. Please arrive 30 minutes early. Please return to the ER if you have other worrisome symptoms such as continual passing out, pain or using more than one pad per hour. Work/School Note: School/Childcare Release Date Seen in the Emergency Department: Apr 24, 2019 Time Dismissed from Emergency Department: 13:23 Return to School: Apr 25, 2019 Restrictions: No Restrictions Copy Copies To 1: HANK LANIER MD, TITUS J Apr 24, 2019 10:49
[2019-04-24 11:03] LABS: BASOPHILS % (AUTO) 0 % (0-10); EOSINOPHILS # (AUTO) 0.1 10^3/uL (0.0-0.3); EOSINOPHILS % (AUTO) 1 % (0-10); HEMATOCRIT 33 % (35-52); HEMOGLOBIN 10.7 G/DL (11.5-16.0); LYMPHOCYTES % (AUTO) 35 % (12-44); MEAN CORPUSCULAR HEMOGLOBIN 28 PG (25-34); MEAN CORPUSCULAR HGB CONC 33 G/DL (32-36); MEAN CORPUSCULAR VOLUME 85 FL (80-99); MONOCYTES # (AUTO) 0.6 X 10^3 (0.0-1.0); MONOCYTES % (AUTO) 10 % (0-12); NEUTROPHILS # (AUTO) 3.1 X 10^3 (1.8-7.8); NEUTROPHILS % (AUTO) 53 % (42-75); PLATELET COUNT 156 10^3/uL (130-400); WHITE BLOOD COUNT 5.7 10^3/uL (4.3-11.0)
[2019-04-24 11:15] LABS: ALANINE AMINOTRANSFERASE 16 U/L (0-55); ALBUMIN 3.7 GM/DL (3.2-4.5); ALKALINE PHOSPHATASE 65 U/L (40-136); BILIRUBIN,TOTAL 0.3 MG/DL (0.1-1.0); BUN/CREATININE RATIO 10; CALCIUM 8.3 MG/DL (8.5-10.1); CARBON DIOXIDE 22 MMOL/L (21-32); CHLORIDE 112 MMOL/L (98-107); CREATININE SERUM 0.63 MG/DL (0.60-1.30); GFR ESTIMATED > 60; GLUCOSE 91 MG/DL (70-105); SODIUM 140 MMOL/L (135-145); TOTAL PROTEIN 6.9 GM/DL (6.4-8.2)
[2019-04-24] MEDS ORDERED: fentaNYL INJECTION 100 MCG/2 ML AMP IVP ONE (11:15)
[2019-04-24 11:20] LABS: BILIRUBIN,URINE NEGATIVE (NEGATIVE); CLARITY,URINE CLEAR; COLOR,URINE YELLOW; GLUCOSE, URINE (UA) NEGATIVE (NEGATIVE); KETONES,URINE NEGATIVE (NEGATIVE); LEUKOCYTE ESTERASE ,URINE NEGATIVE (NEGATIVE); NITRITE,URINE NEGATIVE (NEGATIVE); PH,URINE 6 (5-9); PROTEIN,URINE NEGATIVE (NEGATIVE); UROBILINOGEN,URINE NORMAL (NORMAL)
[2019-04-24 11:38] LABS: RBC,URINE RARE /HPF
[2019-04-24 11:39] LABS: BACTERIA,URINE NEGATIVE /HPF; SQUAMOUS EPITHELIAL CELL,UR 0-2 /HPF
--- NOTE | 2019-04-24 12:01 | Diagnostic Imaging Report ---
PROCEDURE: CT head and CT cervical spine without contrast. TECHNIQUE: Multiple contiguous axial images were obtained through the brain and cervical spine without the use of intravenous contrast. Sagittal and coronal reformations through the cervical spine were then performed. Auto Exposure Controls were utilized during the CT exam to meet ALARA standards for radiation dose reduction. INDICATION: Syncope. CT HEAD: No hemorrhage, hydrocephalus, edema, mass, mass effect, or evidence for elevated pressures found. Orbits, sinuses, and calvarium appear nonacute. Basilar cisterns are patent, and there is no sulcal effacement. No evidence for elevated intracerebral pressures. CT CERVICAL SPINE: Body heights are maintained. The alignment is within normal limits. No acute or suspicious endplate irregularity. The skull base is intact. There is no cervical spinal fracture. Structures of the larynx have an unremarkable appearance. The thoracic inlet and pulmonary apices are clear. IMPRESSION: Unremarkable CT head and CT cervical spine. Dictated by: Dictated on workstation # [id number]
[2019-04-24 12:10] LABS: AMPHETAMINE SCREEN, URINE NEGATIVE (NEGATIVE); BARBITURATE SCREEN URINE NEGATIVE (NEGATIVE); BENZODIAZEPINES SCREEN URINE NEGATIVE (NEGATIVE); CANNABINOID SCREEN, URINE NEGATIVE (NEGATIVE); COCAINE SCREEN URINE NEGATIVE (NEGATIVE); METHADONE STAT NEGATIVE (NEGATIVE); METHAMPHETAMINE SCREEN URINE S NEGATIVE (NEGATIVE); OPIATE SCREEN URINE NEGATIVE (NEGATIVE); OXYCODONE STAT NEGATIVE (NEGATIVE); PROPOXYPHENE STAT NEGATIVE (NEGATIVE); TRICYCLIC ANTIDEPRESSANTS SCRE NEGATIVE (NEGATIVE)
--- NOTE | 2019-04-24 12:10 | NUR ---
c-collar removed by Dr. Diaz at this time.
[2019-04-24 12:46] VITALS: BP_SYST 107; BP_SYST 108; BP_SYST 113; BP_DIAS 71; BP_DIAS 73
--- NOTE | 2019-04-24 13:06 | NUR ---
Pt sitting up in bed speaking with cousin and laughing at this time.
[2019-04-24 13:51] VITALS: BP 106/69
--- NOTE | 2019-04-24 13:53 | NUR ---
1000 ml ns in from ems
== END 2019-04-24 13:53 | disposition home or self-care (01) ==
LOC: EDUNIT# 10:28 → ER 10:29
DX: I95.1 Orthostatic hypotension (principal); N93.9 Abnormal uterine and vaginal bleeding, unspecified; Z91.14 Patient's other noncompliance with medication regimen
CPT/HCPCS: 36415; 51701; 70450; 72125; 80053; 80306; 81000; 84703; 85025; 86141; 93005; 93041